=== PATIENT | male | born 1990 | race African-American/Black ===

== ENCOUNTER 2016-10-13 21:09 | Emergency (ER) | payer SELFPAY ==
[~2016-10-13] VITALS: Ht 182.9 cm; Wt 70.3 kg
[2016-10-14] MEDS ORDERED: LORazepam 0.5 MG TAB PO ONE (03:00)
[2016-10-14 03:09] VITALS: BP 115/77
== END 2016-10-14 03:25 | disposition home or self-care (01) ==
LOC: EDBD 21:09 → ER 21:14
DX: F43.0 Acute stress reaction (principal)
CPT/HCPCS: 93005